=== PATIENT | male | born 1960 | race African-American/Black ===

== ENCOUNTER 2021-02-08 06:17 | Day surgery (SDC) | payer OTHER ==
[2021-02-04 09:04] VITALS: BMI 24.7
[2021-02-08] MEDS ORDERED: BUPIVACAINE LIPOSOME/PF (EXPAREL) 266 MG/20 ML VIAL ONE (06:50)
[2021-02-08] MEDS ORDERED: MIDAZOLAM HCL 2 MG/2 ML SINGLE DOSE VIAL ONE ×3 (06:50→07:56)
[2021-02-08] MEDS ORDERED: SODIUM CHLORIDE 0.9% P/F 10 ML VIAL IJ ONE (06:50)
[2021-02-08] MEDS: CELECOXIB 200 MG CAPSULE PO ONE (07:10)
[2021-02-08] MEDS ORDERED: PROPOFOL 20 ML ONE (07:17)
[2021-02-08] MEDS ORDERED: SUCCINYLCHOLINE CHLORIDE 200 MG/10 ML SYRINGE ONE (07:17)
[2021-02-08] MEDS ORDERED: ceFAZolin SODIUM 1 GM VIAL ONE ×2 (07:27→08:30)
[2021-02-08] MEDS ORDERED: VANCOMYCIN 1,000 MG VIAL (RESTRICTED TO ID ONLY) ONE (07:28)
[2021-02-08] MEDS ORDERED: CEFAZOLIN 2 GM in DEXTROSE 5%-WATER - 50 ML IVPB ONE (07:30)
[2021-02-08] MEDS ORDERED: ONDANSETRON 4 MG/2 ML VIAL IVPUSH PRN (08:01)
[2021-02-08] MEDS ORDERED: MAGNESIUM HYDROX 2400MG/30ML ORAL SUSPENSION 30 ML CUP PO PRN (08:01)
[2021-02-08] MEDS ORDERED: MAG HYDROX/AL HYDROX/SIMETH 30 ML UNIT-DOSE CUP PO PRN (08:01)
[2021-02-08] MEDS ORDERED: LACTATED RINGERS SOLUTION 1,000 ML IV SCH (08:15)
[2021-02-08] MEDS ORDERED: TRANEXAMIC ACID 1000 MG/10 ML VIAL IVPUSH ONE (08:30)
[2021-02-08] MEDS ORDERED: TRANEXAMIC ACID 1000 MG/10 ML VIAL ONE (08:32)
[2021-02-08] MEDS ORDERED: VANCOMYCIN 1,000 MG VIAL (RESTRICTED TO ID ONLY) IVPB ONE (09:56)
[2021-02-08] MEDS ORDERED: PATIENT'S OWN MEDICATION (NON-FORMULARY) (Olmesartan Medoxomil [Olmesartan Medoxomil] 40 M PO SCH (10:00)
[2021-02-08] MEDS ORDERED: ACETAMINOPHEN 325 MG TABLET (FP) PO SCH (10:00)
[2021-02-08] MEDS ORDERED: ACETAMINOPHEN 325 MG TABLET (FP) ONE (11:40)
[2021-02-08] MEDS: oxyCODONE HCL 10 MG SUSTAINED ACTING TABLET PO SCH ×2 (12:22→23:01)
[2021-02-08] MEDS: PANTOPRAZOLE 40 MG TABLET PO SCH (12:22)
[2021-02-08] MEDS: oxyCODONE HCL 5 MG TABLET PO PRN ×2 (14:29→16:53)
[2021-02-08] MEDS: CEFAZOLIN 2 GM/D5W 2 GM/50 ML ML IVPB SCH ×2 (16:45→23:50)
[2021-02-08] MEDS: ACETAMINOPHEN 325 MG TABLET (FP) PO SCH ×2 (19:51→23:50)
[2021-02-08] MEDS: SENNOSIDES/DOCUSATE COMBO (SENNA PLUS) TABLET (UD) PO SCH (21:44)
[2021-02-09] MEDS: oxyCODONE HCL 5 MG TABLET PO PRN ×2 (03:38→06:33)
[2021-02-09] MEDS: ACETAMINOPHEN 325 MG TABLET (FP) PO SCH ×3 (06:33→18:13)
[2021-02-09 07:46] LABS: HEMATOCRIT 32.8 % (35.4-49); MCH 26.9 pg (25.7-33.7); MCHC 33.4 g/dl (32.0-35.9); MEAN CELL VOLUME 80.7 fl (80-96); MEAN PLT VOLUME 8.9 fl (7.5-11.1); PLATELET COUNT 173 K/MM3 (134-434); RBC 4.07 M/mm3 (4.00-5.60); RDW 13.5 % (11.9-15.9); WHITE BLOOD COUNT 6.7 K/mm3 (4.0-10.8)
[2021-02-09] MEDS: KETOROLAC TROMETHAMINE 30 MG/1 ML VIAL IVPUSH SCH ×3 (08:39→21:57)
[2021-02-09] MEDS: CEFAZOLIN 2 GM/D5W 2 GM/50 ML ML IVPB SCH (08:40)
[2021-02-09] MEDS: ASPIRIN 325 MG TABLET PO SCH (08:40)
[2021-02-09] MEDS: CELECOXIB 200 MG CAPSULE PO ONE (09:40)
[2021-02-09] MEDS: MULTIVITAMINS (DAILY MVI) TABLET (FP) PO SCH (11:02)
[2021-02-09] MEDS: HYDROCHLOROTHIAZIDE 25 MG TABLET (FP) PO SCH (11:02)
[2021-02-09] MEDS: PANTOPRAZOLE 40 MG TABLET PO SCH (11:02)
[2021-02-09] MEDS: LOSARTAN POTASSIUM 50 MG TABLET PO SCH (11:03)
[2021-02-09] MEDS: SENNOSIDES/DOCUSATE COMBO (SENNA PLUS) TABLET (UD) PO SCH ×2 (11:03→21:57)
[2021-02-09] MEDS: oxyCODONE HCL 10 MG SUSTAINED ACTING TABLET PO SCH ×2 (11:04→21:57)
[2021-02-10] MEDS: ACETAMINOPHEN 325 MG TABLET (FP) PO SCH ×4 (00:31→17:42)
[2021-02-10] MEDS: KETOROLAC TROMETHAMINE 30 MG/1 ML VIAL IVPUSH SCH ×2 (03:38→05:37)
[2021-02-10 07:54] LABS: HEMATOCRIT 29.5 % (35.4-49); HEMOGLOBIN 9.9 GM/dl (11.7-16.9); MCH 27.3 pg (25.7-33.7); MCHC 33.5 g/dl (32.0-35.9); MEAN CELL VOLUME 81.3 fl (80-96); MEAN PLT VOLUME 8.8 fl (7.5-11.1); PLATELET COUNT 138 K/MM3 (134-434); RBC 3.63 M/mm3 (4.00-5.60); RDW 13.7 % (11.9-15.9); WHITE BLOOD COUNT 7.5 K/mm3 (4.0-10.8)
[2021-02-10] MEDS: ASPIRIN 325 MG TABLET PO SCH (08:25)
[2021-02-10 08:30] LABS: ALBUMIN 2.9 g/dl (3.4-5.0); CALCIUM 8.2 mg/dl (8.5-10); POTASSIUM 3.1 mmol/L (3.5-5.1); TOT PROT 5.7 g/dl (6.4-8.2)
[2021-02-10] MEDS: LOSARTAN POTASSIUM 50 MG TABLET PO SCH (09:16)
[2021-02-10] MEDS: PANTOPRAZOLE 40 MG TABLET PO SCH (09:16)
[2021-02-10] MEDS: HYDROCHLOROTHIAZIDE 25 MG TABLET (FP) PO SCH (09:16)
[2021-02-10] MEDS: oxyCODONE HCL 10 MG SUSTAINED ACTING TABLET PO SCH ×2 (09:17→21:08)
[2021-02-10] MEDS: SENNOSIDES/DOCUSATE COMBO (SENNA PLUS) TABLET (UD) PO SCH ×2 (09:17→22:55)
[2021-02-10] MEDS: MULTIVITAMINS (DAILY MVI) TABLET (FP) PO SCH (09:17)
[2021-02-10] MEDS ORDERED: POTASSIUM CHLORIDE TABS 20 MEQ TABLET.ER (FP) PO ONE (13:45)
[2021-02-10] MEDS: oxyCODONE HCL 5 MG TABLET PO PRN (21:08)
[2021-02-11] MEDS: ACETAMINOPHEN 325 MG TABLET (FP) PO SCH ×2 (06:55→12:02)
[2021-02-11] MEDS: ASPIRIN 325 MG TABLET PO SCH (08:34)
[2021-02-11] MEDS: oxyCODONE HCL 5 MG TABLET PO PRN (08:35)
[2021-02-11] MEDS: LOSARTAN POTASSIUM 50 MG TABLET PO SCH (09:42)
[2021-02-11] MEDS: PANTOPRAZOLE 40 MG TABLET PO SCH (09:42)
[2021-02-11] MEDS: SENNOSIDES/DOCUSATE COMBO (SENNA PLUS) TABLET (UD) PO SCH (09:43)
[2021-02-11] MEDS: MULTIVITAMINS (DAILY MVI) TABLET (FP) PO SCH (09:43)
[2021-02-11] MEDS: HYDROCHLOROTHIAZIDE 25 MG TABLET (FP) PO SCH (09:43)
[2021-02-11 11:01] VITALS: BP 119/65; PULSE 92; TEMP 99.5
== END 2021-02-11 15:12 | disposition home health service (06) ==
LOC: FASUSAT 06:17 → EDSTATUS 08:00 → FM/S 12:09 → FASUSAT 02-11 15:12
PROVIDERS: ATTEND Orthopaedic Surgery
PROC: 0SRD0J9 Replacement of Left Knee Joint with Synthetic Substitute, Cemented, Open Approach (ICD-10-PCS; principal; 2021-02-08 08:45)
DX: M17.12 Unilateral primary osteoarthritis, left knee (principal)
CPT/HCPCS: 27447; C1776; 36415; 73560-TC-LT-FY; 80053; 85027; 93005; 94760; 97010-GP; 97116-GP; 97162-GP

== ENCOUNTER 2021-09-23 13:17 | Emergency (ER) | payer OTHER ==
[2021-09-23 13:21] VITALS: BP 159/89; PULSE 81; TEMP 98; BMI 24.4
[2021-09-23] MEDS ORDERED: METOCLOPRAMIDE HCL INJECTION 10 MG/2 ML VIAL IVPB ONE (14:12)
[2021-09-23] MEDS ORDERED: ACETAMINOPHEN 1000 MG/100 ML VIAL IVPB ONE (14:12)
[2021-09-23] MEDS ORDERED: SODIUM CHLORIDE 1,000 ML IV STA (14:12)
[2021-09-23] MEDS ORDERED: ACETAMINOPHEN INJECTION 100 ML IVPB ONE (14:25)
[2021-09-23] MEDS ORDERED: METOCLOPRAMIDE HCL INJECTION 10 MG/2 ML VIAL ONE (14:25)
[2021-09-23 14:49] LABS: BASO % 0.7 % (0-2.0); EOS % 2.8 % (0-4.5); HEMATOCRIT 37.3 % (35.4-49); HEMOGLOBIN 12.5 GM/dL (11.7-16.9); LYMPH % 25.7 % (8-40); MCH 26.4 pg (25.7-33.7); MCHC 33.5 g/dl (32.0-35.9); MEAN CELL VOLUME 78.6 fl (80-96); MEAN PLT VOLUME 7.9 fl (7.5-11.1); MONO % 12.5 % (3.8-10.2); NEUT % 58.3 % (42.8-82.8); PLATELET COUNT 200 10^3/uL (134-434); RBC 4.75 M/mm3 (4.00-5.60); RDW 15.7 % (11.9-15.9); WHITE BLOOD COUNT 4.1 K/mm3 (4.0-10.0)
[2021-09-23 14:56] LABS: INR 1.08 (0.83-1.09); PROTHROMBIN TIME (PATIENT) 12.6 SEC (9.7-13.0)
[2021-09-23 15:16] LABS: ALBUMIN 3.5 g/dl (3.4-5.0); BLOOD UREA NITROGEN 14.7 mg/dL (7-18); CALCIUM 8.9 mg/dL (8.5-10.1)
[2021-09-23 15:20] LABS: CREATININE 0.9 mg/dL (0.55-1.3)
[2021-09-23 15:22] LABS: BILIRUBIN,TOTAL 0.4 mg/dL (0.2-1); TOT PROT 7.1 g/dl (6.4-8.2)
== END 2021-09-23 16:56 | disposition home or self-care (01) ==
LOC: JERFT 13:17
PROC: 3E0333Z Introduction of Anti-inflammatory into Peripheral Vein, Percutaneous Approach (ICD-10-PCS; principal; 2021-09-23)
PROC: 3E033GC Introduction of Other Therapeutic Substance into Peripheral Vein, Percutaneous Approach (ICD-10-PCS; 2021-09-23)
PROC: 3E0337Z Introduction of Electrolytic and Water Balance Substance into Peripheral Vein, Percutaneous Approach (ICD-10-PCS; 2021-09-23)
DX: S06.0X1A Concussion with loss of consciousness of 30 minutes or less, initial encounter (principal); W20.8XXA Other cause of strike by thrown, projected or falling object, initial encounter; Y92.512 Supermarket, store or market as the place of occurrence of the external cause
CPT/HCPCS: 36415; 70450-TC; 80053; 85025; 85610; 99284-25; J0131

== ENCOUNTER 2022-04-18 06:03 | Day surgery (SDC) | payer OTHER ==
[2022-04-11 15:30] VITALS: BMI 28.0
[2022-04-18] MEDS ORDERED: CEFAZOLIN 2 GM in DEXTROSE 5%-WATER - 50 ML IVPB ONE (06:36)
[2022-04-18] MEDS ORDERED: CELECOXIB 200 MG CAPSULE PO ONE (06:36)
[2022-04-18] MEDS ORDERED: GABAPENTIN 300 MG CAPSULE PO ONE (06:37)
[2022-04-18] MEDS ORDERED: TRANEXAMIC ACID 1000 MG/10 ML VIAL IVPUSH ONE (06:37)
[2022-04-18] MEDS ORDERED: ceFAZolin SODIUM 1 GM VIAL ONE ×4 (07:16→23:26)
[2022-04-18] MEDS ORDERED: MIDAZOLAM HCL 2 MG/2 ML SINGLE DOSE VIAL ONE ×3 (07:16→07:17)
[2022-04-18] MEDS ORDERED: PROPOFOL 20 ML ONE ×2 (07:16)
[2022-04-18] MEDS ORDERED: SUCCINYLCHOLINE CHLORIDE 200 MG/10 ML SYRINGE ONE (07:16)
[2022-04-18] MEDS ORDERED: ONDANSETRON 4 MG/2 ML VIAL ONE (07:16)
[2022-04-18] MEDS ORDERED: DEXAMETHASONE SOD PHOSPHATE 4 MG/1 ML VIAL ONE (07:16)
[2022-04-18] MEDS ORDERED: LIDOCAINE HCL/PF 2% SDV 5ML VIAL ONE (07:16)
[2022-04-18] MEDS ORDERED: VANCOMYCIN 1,000 MG VIAL (RESTRICTED TO ID ONLY) ONE (07:22)
[2022-04-18] MEDS ORDERED: BUPIVACAINE HCL/PF 0.5% (5 MG/ML) 30 ML VIAL IJ ONE (07:28)
[2022-04-18] MEDS ORDERED: BUPIVACAINE LIPOSOME/PF (EXPAREL) 266 MG/20 ML VIAL ONE (07:28)
[2022-04-18] MEDS ORDERED: FENTANYL CITRATE/PF 50 MCG/ML VIAL ONE (07:35)
[2022-04-18] MEDS ORDERED: SODIUM CHLORIDE 0.9% P/F 10 ML VIAL IJ ONE ×2 (07:35→08:50)
[2022-04-18] MEDS ORDERED: ONDANSETRON 4 MG/2 ML VIAL IVPUSH PRN ×2 (07:58→10:14)
[2022-04-18] MEDS ORDERED: MAG HYDROX/AL HYDROX/SIMETH 30 ML UNIT-DOSE CUP PO PRN (07:58)
[2022-04-18] MEDS ORDERED: LACTATED RINGERS SOLUTION 1,000 ML IV SCH (08:00)
[2022-04-18] MEDS ORDERED: TRANEXAMIC ACID 1000 MG/10 ML VIAL ONE (09:32)
[2022-04-18] MEDS ORDERED: BUPIVICAINE 0.25%/MORPH PF/KETOROLAC - 51ML DISP.SYRINGE IA ONE (10:00)
[2022-04-18] MEDS ORDERED: PATIENT'S OWN MEDICATION (NON-FORMULARY) (Olmesartan Medoxomil [Olmesartan Medoxomil] 40 M PO SCH (10:00)
[2022-04-18] MEDS ORDERED: oxyCODONE HCL 5 MG TABLET PO PRN (10:09)
[2022-04-18] MEDS ORDERED: ACETAMINOPHEN INJECTION 100 ML IVPB ONE (11:01)
[2022-04-18] MEDS ORDERED: KETOROLAC TROMETHAMINE 30 MG/1 ML VIAL ONE (11:01)
[2022-04-18] MEDS: KETOROLAC TROMETHAMINE 30 MG/1 ML VIAL IVPUSH SCH ×2 (11:05→17:58)
[2022-04-18] MEDS: ACETAMINOPHEN 1000 MG/100 ML BAG IVPB ONE ×2 (11:10→18:18)
[2022-04-18] MEDS ORDERED: DEXTROSE 5%-WATER - 50 ML IVPB ONE ×2 (16:53→23:26)
[2022-04-18] MEDS: oxyCODONE HCL 5 MG TABLET PO PRN (17:57)
[2022-04-18] MEDS: CEFAZOLIN 2 GM in DEXTROSE 5%-WATER - 50 ML IVPB SCH ×2 (17:59→23:47)
[2022-04-18] MEDS: ACETAMINOPHEN 500 MG TABLET (FP) PO SCH ×2 (18:13→23:47)
[2022-04-18] MEDS: LACTATED RINGERS SOLUTION 1,000 ML IV SCH (18:19)
[2022-04-18] MEDS: PANTOPRAZOLE 40 MG TABLET PO SCH (18:20)
[2022-04-18] MEDS: MULTIVITAMINS (DAILY MVI) TABLET (FP) PO SCH (18:20)
[2022-04-18] MEDS: SENNOSIDES/DOCUSATE COMBO (SENNA PLUS) TABLET (UD) PO SCH (21:30)
[2022-04-18] MEDS: oxyCODONE HCL 10 MG SUSTAINED ACTING TABLET PO SCH (21:56)
[2022-04-19] MEDS: ACETAMINOPHEN 500 MG TABLET (FP) PO SCH ×3 (06:02→18:47)
[2022-04-19 08:03] LABS: HEMATOCRIT 33.6 % (35.4-49); HEMOGLOBIN 11.5 G/dL (11.7-16.9); MCH 27.5 pg (25.7-33.7); MCHC 34.3 g/dl (32.0-35.9); MEAN PLT VOLUME 8.9 fl (7.5-11.1); RDW 15.7 % (11.9-15.9); WHITE BLOOD COUNT 7.9 10^3/uL (4.0-10.8)
[2022-04-19] MEDS: HYDROCHLOROTHIAZIDE 25 MG TABLET (FP) PO SCH (09:19)
[2022-04-19] MEDS: ASPIRIN 325 MG TABLET PO SCH (09:19)
[2022-04-19] MEDS: amLODIPine BESYLATE 5 MG TABLET (FP) PO SCH (09:19)
[2022-04-19] MEDS: LOSARTAN POTASSIUM 50 MG TABLET PO SCH (09:20)
[2022-04-19] MEDS: MULTIVITAMINS (DAILY MVI) TABLET (FP) PO SCH (09:21)
[2022-04-19] MEDS: METOPROLOL TARTRATE 25 MG TABLET (FP) PO SCH (09:21)
[2022-04-19] MEDS: SENNOSIDES/DOCUSATE COMBO (SENNA PLUS) TABLET (UD) PO SCH (09:21)
[2022-04-19] MEDS: oxyCODONE HCL 10 MG SUSTAINED ACTING TABLET PO SCH (09:23)
[2022-04-19] MEDS: PANTOPRAZOLE 40 MG TABLET PO SCH (09:24)
[2022-04-19] MEDS: oxyCODONE HCL 5 MG TABLET PO PRN ×2 (13:02→20:38)
[2022-04-19] MEDS: LACTATED RINGERS SOLUTION 1,000 ML IV SCH (13:04)
[2022-04-20] MEDS: oxyCODONE HCL 5 MG TABLET PO PRN ×2 (00:23→06:30)
[2022-04-20] MEDS: SENNOSIDES/DOCUSATE COMBO (SENNA PLUS) TABLET (UD) PO SCH ×2 (03:05→10:39)
[2022-04-20] MEDS: oxyCODONE HCL 10 MG SUSTAINED ACTING TABLET PO SCH ×2 (03:12→10:38)
[2022-04-20] MEDS: ACETAMINOPHEN 500 MG TABLET (FP) PO SCH ×3 (06:29→12:39)
[2022-04-20] MEDS: ASPIRIN 325 MG TABLET PO SCH (07:57)
[2022-04-20 08:25] LABS: HEMATOCRIT 30.5 % (35.4-49); HEMOGLOBIN 10.8 G/dL (11.7-16.9); MCH 28.2 pg (25.7-33.7); MCHC 35.5 g/dl (32.0-35.9); MEAN CELL VOLUME 79.2 fl (80-96); MEAN PLT VOLUME 9.1 fl (7.5-11.1); PLATELET COUNT 167.9 10^3/uL (134-434); RBC 3.85 10^6/uL (4.00-5.60); RDW 15.2 % (11.9-15.9); WHITE BLOOD COUNT 8.6 10^3/uL (4.0-10.8)
[2022-04-20] MEDS: LOSARTAN POTASSIUM 50 MG TABLET PO SCH (10:38)
[2022-04-20] MEDS: MULTIVITAMINS (DAILY MVI) TABLET (FP) PO SCH (10:38)
[2022-04-20] MEDS: amLODIPine BESYLATE 5 MG TABLET (FP) PO SCH (10:38)
[2022-04-20] MEDS: HYDROCHLOROTHIAZIDE 25 MG TABLET (FP) PO SCH (10:38)
[2022-04-20] MEDS: METOPROLOL TARTRATE 25 MG TABLET (FP) PO SCH (10:39)
[2022-04-20] MEDS: PANTOPRAZOLE 40 MG TABLET PO SCH (10:39)
[2022-04-20 14:06] VITALS: BP 112/65; PULSE 87; TEMP 99.9
== END 2022-04-20 15:57 | disposition home or self-care (01) ==
LOC: FASUSAT 06:03 → FM/S 12:39 → FASUSAT 04-20 15:57
PROVIDERS: ATTEND Orthopaedic Surgery
PROC: 8E0YXBZ Computer Assisted Procedure of Lower Extremity (ICD-10-PCS; 2022-04-18)
PROC: 8E0Y0CZ Robotic Assisted Procedure of Lower Extremity, Open Approach (ICD-10-PCS; 2022-04-18)
PROC: 0SRC0J9 Replacement of Right Knee Joint with Synthetic Substitute, Cemented, Open Approach (ICD-10-PCS; principal; 2022-04-18 08:25)
DX: M17.11 Unilateral primary osteoarthritis, right knee (principal)
CPT/HCPCS: 20985; 27447; C1776; S2900; 36415; 73560-TC-RT-FY; 85027; 94760; 97010-GP; 97116-GP; 97161-GP

== ENCOUNTER 2022-05-31 04:01 | Day surgery (SDC) | payer OTHER ==
[2022-05-30 10:42] VITALS: BMI 27.6
[2022-05-31] MEDS ORDERED: SUCCINYLCHOLINE CHLORIDE 200 MG/10 ML SYRINGE ONE (07:43)
[2022-05-31] MEDS ORDERED: MIDAZOLAM HCL 2 MG/2 ML SINGLE DOSE VIAL ONE (07:43)
[2022-05-31] MEDS ORDERED: PROPOFOL 20 ML ONE ×2 (07:43→08:23)
[2022-05-31] MEDS ORDERED: oxyCODONE HCL 5 MG TABLET PO PRN (07:46)
[2022-05-31] MEDS ORDERED: ONDANSETRON 4 MG/2 ML VIAL IVPUSH PRN (07:46)
[2022-05-31] MEDS ORDERED: oxyCODONE HCL 5 MG TABLET ONE (09:10)
[2022-05-31 09:43] VITALS: TEMP 97.2
[2022-05-31 09:52] VITALS: BP 115/70; PULSE 70
== END 2022-05-31 10:05 | disposition home or self-care (01) ==
LOC: JASU-SURG 04:01
PROVIDERS: ATTEND Orthopaedic Surgery
PROC: 0SNCXZZ Release Right Knee Joint, External Approach (ICD-10-PCS; principal; 2022-05-31 08:00)
DX: M24.661 Ankylosis, right knee (principal); Z96.651 Presence of right artificial knee joint

== ENCOUNTER 2023-02-20 04:21 | Day surgery (SDC) | payer OTHER ==
[2023-02-16 09:38] VITALS: BMI 27.8
[2023-02-20] MEDS ORDERED: MIDAZOLAM HCL 2 MG/2 ML SINGLE DOSE VIAL ONE (08:41)
[2023-02-20] MEDS ORDERED: PROPOFOL 20 ML ONE ×2 (08:43→09:23)
[2023-02-20] MEDS ORDERED: SODIUM CHLORIDE 0.9% P/F 10 ML VIAL IJ ONE (08:44)
[2023-02-20] MEDS ORDERED: ceFAZolin SODIUM 1 GM VIAL ONE (08:44)
[2023-02-20] MEDS ORDERED: BUPIVACAINE HCL/PF 0.5% (5MG/ML) 10 ML VIAL ONE ×2 (08:48)
[2023-02-20] MEDS ORDERED: LIDOCAINE HCL 1%, 10 MG/ML (10ML VIAL) MDV ONE (08:48)
[2023-02-20] MEDS ORDERED: BUPIVACAINE HCL/PF 0.5% (5MG/ML) 10 ML VIAL IJ ONE ×2 (09:09)
[2023-02-20] MEDS ORDERED: LIDOCAINE 1% P/F 10 MG/ML VIAL INF ONE ×2 (09:09)
[2023-02-20] MEDS ORDERED: ROCURONIUM BROMIDE 50 MG/5 ML SYRINGE ONE (09:26)
[2023-02-20] MEDS ORDERED: DEXAMETHASONE SOD PHOSPHATE 4 MG/1 ML VIAL ONE (09:37)
[2023-02-20] MEDS ORDERED: ceFAZolin SODIUM 1 GM VIAL IVPB ONE (09:40)
[2023-02-20] MEDS ORDERED: ONDANSETRON 4 MG/2 ML VIAL ONE (09:50)
[2023-02-20] MEDS ORDERED: GLYCOPYRROLATE 0.2 MG/1 ML VIAL ONE ×2 (09:50→09:59)
[2023-02-20] MEDS ORDERED: NEOSTIGMINE METHYLSULFATE 0.5 MG/1 ML - 10 ML MDV ONE (09:55)
[2023-02-20] MEDS ORDERED: KETOROLAC TROMETHAMINE 30 MG/1 ML VIAL ONE (09:59)
[2023-02-20] MEDS ORDERED: ONDANSETRON 4 MG/2 ML VIAL IVPUSH PRN (10:32)
[2023-02-20] MEDS ORDERED: oxyCODONE HCL 5 MG TABLET PO PRN ×2 (10:32)
[2023-02-20] MEDS ORDERED: LACTATED RINGERS SOLUTION 1,000 ML IV SCH (10:45)
[2023-02-20 12:25] VITALS: RESP 20
[2023-02-20] MEDS ORDERED: ACETAMINOPHEN 325 MG TABLET (FP) ONE (14:09)
[2023-02-20 16:03] VITALS: BP 138/85; PULSE 58; TEMP 98.2
== END 2023-02-20 16:03 | disposition home or self-care (01) ==
LOC: JASU-SURG 04:21
PROVIDERS: ATTEND Surgery
PROC: 0JBC0ZZ Excision of Pelvic Region Subcutaneous Tissue and Fascia, Open Approach (ICD-10-PCS; principal; 2023-02-20 09:00)
DX: D17.1 Benign lipomatous neoplasm of skin and subcutaneous tissue of trunk (principal)
CPT/HCPCS: 88304-TC; 94760; C9803-CS; U0003; U0005